=== PATIENT | female | born 1955 | race Caucasian/White ===

== ENCOUNTER → 2017-09-19 | Outpatient (CLI) | payer OTHER ==
[~2017-09-19] MED LIST: FURO40TA6 PO; LEVO112T2 PO; LEVO25TA2 PO; LORA10TA3 PO; MACI10TA PO; MESA1.2T PO; POTA10TA11 PO; POTA20TA89 PO; PROP10TA PO; RABE20TA18 PO; RABE20TA26 PO; SPIR100T2 PO; SPIR25TA3 PO; TRAM100T13 PO; TRAM50TA2 PO; TRAZ100T15 PO; TRAZ50TA18 PO; WARF5TAB PO; WARF5TAB7 PO; [UNRECOGNIZED DRUG - OTHER] PO
== END | disposition home or self-care (01) ==
LOC: CFH 07:50
PROVIDERS: ATTEND Internal Medicine Gastroenterology
DX: Z13.820 Encounter for screening for osteoporosis (principal); E89.40 Asymptomatic postprocedural ovarian failure; M81.0 Age-related osteoporosis without current pathological fracture; R10.9 Unspecified abdominal pain; K74.69 Other cirrhosis of liver; K80.20 Calculus of gallbladder without cholecystitis without obstruction; R18.8 Other ascites; B18.2 Chronic viral hepatitis C; K50.818 Crohn's disease of both small and large intestine with other complication; D69.6 Thrombocytopenia, unspecified; I27.20 Pulmonary hypertension, unspecified; D50.0 Iron deficiency anemia secondary to blood loss (chronic); I85.00 Esophageal varices without bleeding; I86.4 Gastric varices; E03.9 Hypothyroidism, unspecified; Z86.010 Personal history of colon polyps
CPT/HCPCS: 77080

== ENCOUNTER → 2017-09-26 | Outpatient (CLI) | payer OTHER ==
[~2017-09-26] MED LIST changes: +LEVO125T PO; +furosemide PO
[2017-09-26 15:02] LABS: ALANINE AMINOTRANSFERASE 21 U/L (12-78); ALBUMIN 3.3 g/dL (3.4-5.0); ANION GAP 8 mmol/L (5-15); CALCIUM 8.4 mg/dL (8.5-10.1); CHLORIDE 108 mmol/L (98-107)
[2017-09-26 15:05] LABS: ALKALINE PHOSPHATASE 148 U/L (45-117); BILIRUBIN,TOTAL 1.5 mg/dL (0.2-1.0); CREATININE 0.79 mg/dL (0.55-1.02); TOTAL PROTEIN 6.4 g/dL (6.4-8.2)
== END | disposition home or self-care (01) ==
LOC: STAR 13:41
PROVIDERS: ATTEND Thoracic Surgery (Cardiothoracic Vascular Surgery)
DX: Z01.818 Encounter for other preprocedural examination (principal); R94.31 Abnormal electrocardiogram [ECG] [EKG]
CPT/HCPCS: 36415; 80053; 93005

== ENCOUNTER 2017-10-02 10:08 | Observation (INO) | payer OTHER ==
[~2017-10-02] VITALS: Ht 162.6 cm; Wt 84.0 kg
[~2017-10-02 10:08] MED LIST changes: +BUPIVACAINE/PF 0.5% ONE
[2017-10-02] MEDS ORDERED: LACTATED RINGERS 1,000 ML IV SCH (10:38)
[2017-10-02 10:48] VITALS: BP 117/69
[2017-10-02] MEDS ORDERED: THROMBIN 5,000 UNIT VIAL TP ONE ×2 (15:16→15:54)
[2017-10-02] MEDS ORDERED: GLYCOPYRROLATE 0.2MG/1ML, 5ML ONE (15:23)
[2017-10-02] MEDS ORDERED: SUCCINYLCHOLINE 20 MG/ML, 10ML ONE (15:23)
[2017-10-02] MEDS ORDERED: CEFAZOLIN 1,000 MG ONE (15:23)
[2017-10-02] MEDS ORDERED: DEXAMETHASONE 4 MG/ML, 1ML ONE (15:23)
[2017-10-02] MEDS ORDERED: ROCURONIUM 10 MG/ML,10ML ONE (15:23)
[2017-10-02] MEDS ORDERED: NEOSTIGMINE 1 MG/ML, 10ML ONE (15:23)
[2017-10-02] MEDS ORDERED: PROPOFOL 10 MG/ML, 20ML ONE (15:23)
[2017-10-02] MEDS ORDERED: ONDANSETRON 2MG/ML, 2ML ONE (15:23)
[2017-10-02] MEDS ORDERED: FENTANYL PF 100 MCG/2ML ONE ×2 (15:24→16:13)
[2017-10-02] MEDS ORDERED: SUGAMMADEX 200 MG/2 ML IVPush ONE (15:28)
[2017-10-02] MEDS ORDERED: BUPIVACAINE/PF-EPI 0.5% 1:200K IM ONE (15:46)
[2017-10-02] MEDS ORDERED: OXYcodone 5 MG/5 ML ORAL.SOL UDC ONE (16:13)
[2017-10-02] MEDS: FENTANYL PF 100 MCG/2ML IV PRN ×2 (16:15→16:21)
[2017-10-02] MEDS ORDERED: ONDANSETRON 2MG/ML, 2ML IVPush PRN (16:30)
[2017-10-02] MEDS ORDERED: LORazepam 0.5MG TABLET PO PRN (16:30)
[2017-10-02] MEDS ORDERED: PROMETHAZINE 25 MG/ML, 1ML IM PRN (16:30)
[2017-10-02] MEDS ORDERED: OXYcodone 5 MG/5 ML ORAL.SOL UDC PO PRN (16:30)
[2017-10-02] MEDS ORDERED: DIPHENHYDRAMINE 25 MG CAPSULE PO PRN (16:30)
[2017-10-02] MEDS ORDERED: LORazepam 2 MG/ML, 1ML IV PRN (16:30)
[2017-10-02] MEDS ORDERED: FAMOTIDINE 20 MG TABLET PO SCH (16:30)
[2017-10-02] MEDS ORDERED: PROMETHAZINE 12.5 MG SUPP PR PRN (16:30)
[2017-10-02] MEDS ORDERED: FAMOTIDINE 20 MG/2 ML IV SCH (16:30)
[2017-10-02] MEDS ORDERED: hydrALAzine 20 MG/ML, 1ML IV PRN (16:30)
[2017-10-02] MEDS ORDERED: MEPERIDINE/PF 25MG/0.5ML IVPush PRN (16:30)
[2017-10-02] MEDS ORDERED: HYDROcodone/APAP 7.5-325MG/15ML UDC PO PRN (16:30)
[2017-10-02] MEDS ORDERED: ENALAPRILAT 1.25 MG/ML, 2ML IV PRN (16:30)
[2017-10-02] MEDS ORDERED: KETOROLAC 30 MG/1 ML IV PRN (16:30)
[2017-10-02] MEDS ORDERED: DIPHENHYDRAMINE 50 MG/ML, 1ML IV PRN (16:30)
[2017-10-02] MEDS ORDERED: ACETAMINOPHEN 325 MG TABLET PO PRN (16:30)
[2017-10-02] MEDS ORDERED: morphine SULFATE 10 MG/ML, 1ML IV PRN (16:30)
[2017-10-02] MEDS ORDERED: HYDROmorphone 2 MG/ML, 1ML ONE (16:31)
[2017-10-02] MEDS: HYDROmorphone 1 MG/ML, 1ML IV PRN ×4 (16:32→17:19)
[2017-10-02] MEDS: OXYcodone 5 MG/5 ML ORAL.SOL UDC PO PRN ×2 (19:32→23:41)
[2017-10-02 20:13] VITALS: BP 136/75
[2017-10-02] MEDS ORDERED: TRAZODONE 150MG TABLET PO SCH (21:00)
[2017-10-02 23:59] VITALS: BP 125/74
[2017-10-03] MEDS: LACTATED RINGERS 1,000 ML IV SCH ×2 (00:02→08:02)
[2017-10-03] MEDS ORDERED: OXYC20TA2 PO (01:04)
[2017-10-03 04:11] VITALS: BP 127/71
[2017-10-03] MEDS ORDERED: LEVOTHYROXINE 125 MCG TABLET PO SCH (06:00)
[2017-10-03 06:48] VITALS: BP 144/78
[2017-10-03] MEDS ORDERED: MACITENTAN 10 MG HOMEMEDPO SCH (09:00)
[2017-10-03] MEDS ORDERED: MESALAMINE 1.2 GM TABLET.DR PO SCH (09:00)
[2017-10-03] MEDS: OXYcodone 5 MG/5 ML ORAL.SOL UDC PO PRN ×2 (10:22→14:13)
== END 2017-10-03 14:40 | disposition home or self-care (01) ==
LOC: OUT 10:08 → ORIP 16:02 → 4NOR 18:02 → DCLOUNGE 10-03 14:27
PROVIDERS: ADMIT Thoracic Surgery (Cardiothoracic Vascular Surgery); ATTEND Thoracic Surgery (Cardiothoracic Vascular Surgery)
DX: K80.10 Calculus of gallbladder with chronic cholecystitis without obstruction (principal); I27.20 Pulmonary hypertension, unspecified; K74.60 Unspecified cirrhosis of liver; D64.9 Anemia, unspecified
CPT/HCPCS: 47562; 88304; 96374; G0378; J0330; J0690; J1100; J1170; J2405; J2704; J2710; J3010; J3490; J7120; S0028

== ENCOUNTER → 2018-03-06 | Outpatient (CLI) | payer MEDICARE ==
[~2018-03-06] MED LIST changes: -BUPIVACAINE/PF 0.5% ONE; +OXYC20TA2 PO; +WARF-36 PO; -WARF5TAB7 PO
== END | disposition home or self-care (01) ==
LOC: CFH 07:24
PROVIDERS: ATTEND Internal Medicine Cardiovascular Disease
DX: I07.1 Rheumatic tricuspid insufficiency (principal); I27.20 Pulmonary hypertension, unspecified; I10 Essential (primary) hypertension
CPT/HCPCS: 93306

== ENCOUNTER 2019-03-07 11:23 | Inpatient (IN) | payer MEDICARE ==
[~2019-03-07] VITALS: Ht 162.6 cm; Wt 70.8 kg
[~2019-03-07 11:23] MED LIST changes: +LORA-247 PO; -LORA10TA3 PO; -PROP10TA PO; +PROP10TA16 PO; -SPIR100T2 PO; +SPIR100T4 PO; -SPIR25TA3 PO; +SPIR25TA5 PO; +TRAZ-137 PO; -TRAZ100T15 PO; -TRAZ50TA18 PO; +TRAZ50TA66 PO
--- NOTE | 2019-03-07 11:43 | NUR ---
PT WITH C/O N/V/D STARTING SATURDAY LATE AT NIGHT 03/05. PT STATES HER VOMIT AND DIARHHEA IS DARK RED/TARRY. PT DENIES CP, DIZZINESS, MEJIA. STATES SHE FEELS GENERALLY WEAK. PT TO NIBP, CONT PULSE OX. PT TOLD DAUGHTER SHE HAD ABD PAIN, PT DENIES ABD PAIN AT THIS TIME.
[2019-03-07] MEDS ORDERED: SODIUM CHLORIDE FLUSH 10ML SYR IVF ONE (12:30)
[2019-03-07 12:51] LABS: BASOPHILS # (AUTO) 0.04 x10^3/uL (0-0.1); BASOPHILS % (AUTO) 1 % (0-1); EOSINOPHILS # (AUTO) 0.13 x10^3/uL (0-0.4); EOSINOPHILS % (AUTO) 2 % (1-7); LYMPHOCYTES # (AUTO) 0.89 x10^3/uL (1-3.4); LYMPHOCYTES % (AUTO) 12 % (22-44); MD NO; MEAN CORPUSCULAR HEMOGLOBIN 27.7 pg (27.0-34.8); MEAN CORPUSCULAR HGB CONC 32.2 g/dL (32.4-35.8); MEAN CORPUSCULAR VOLUME 85.8 fL (80-100); MEAN PLATELET VOLUME 9.8 fL (7.4-10.4); MONOCYTES # (AUTO) 0.56 x10^3/uL (0.2-0.8); MONOCYTES % (AUTO) 7 % (2-9); NEUTROPHILS # (AUTO) 5.93 x10^3/uL (1.8-6.8); NEUTROPHILS % (AUTO) 79 % (42-75); PLATELET COUNT 138 x10^3/uL (130-400); RED BLOOD COUNT 2.84 x10^6/uL (3.82-5.3); RED CELL DISTRIBUTION WIDTH 19.1 % (9.6-15.2)
[2019-03-07 13:03] LABS: ALBUMIN 2.6 g/dL (3.4-5.0); ANION GAP 8 mmol/L (5-15); CALCIUM 8.4 mg/dL (8.5-10.1); CHLORIDE 118 mmol/L (98-107); INTERNATIONAL NORMALIZED RATIO 1.41 (0.93-1.1)
--- NOTE | 2019-03-07 13:03 | NUR ---
PATIETN WITH MD FOR PLAN OF CARE. DISCUSSED IWTH MD PATIENT BP AND 1000 ML BOLUS STARTED
[2019-03-07 13:07] LABS: ALANINE AMINOTRANSFERASE 26 U/L (12-78); ALKALINE PHOSPHATASE 80 U/L (45-117); BILIRUBIN,TOTAL 1.2 mg/dL (0.2-1.0); CREATININE 0.65 mg/dL (0.55-1.02); TOTAL PROTEIN 4.7 g/dL (6.4-8.2)
[2019-03-07 13:14] LABS: PROTHROMBIN TIME 14.6 Seconds (9.6-11.5)
[2019-03-07 13:29] LABS: CLOSTRIDIUM DIFFICILE ANTIGEN POSITIVE; CLOSTRIDIUM DIFFICILE TOXIN POSITIVE (Negative)
[2019-03-07] MEDS ORDERED: PANTOPRAZOLE 80 MG in SODIUM CHLORIDE 0.9% 50 ML IVPB ONE (13:30)
[2019-03-07] MEDS ORDERED: SODIUM CHLORIDE 0.9% 1,000ML IVBOLUS ONE (13:30)
[2019-03-07] MEDS: PANTOPRAZOLE 80 MG in SODIUM CHLORIDE 0.9% 100 ML IV SCH ×3 (13:59→23:25)
--- NOTE | 2019-03-07 14:05 | NUR ---
LAB CALLED WITH POSITIVE CDIFF RESULTS, PT PLACED IN ISO, FAMILY MEMBERS EDUCATED ON ISOLATION PRECAUTIONS. PT MEDICATED PER MAR
--- NOTE | 2019-03-07 15:04 | NUR ---
PT RESTING ON JAMES ALONZO IN TO UPDATE PT ON POC. PROTONIX GTT INFUSING, PT TO RECIEVE PRBC, CONSENT SIGNED.
--- NOTE | 2019-03-07 15:10 | NUR ---
REPORT CALLED TO RECIEVING MARLI HINSON.
[2019-03-07] MEDS ORDERED: OXYcodone IR 5MG TABLET PO PRN (16:00)
[2019-03-07] MEDS ORDERED: ONDANSETRON 2MG/ML, 2ML IVPush PRN (16:00)
[2019-03-07] MEDS: SERTRALINE 50MG TABLET PO SCH (17:00)
[2019-03-07 17:04] VITALS: BP 100/57
[2019-03-07 17:29] VITALS: BP 106/60
[2019-03-07] MEDS ORDERED: ARIP10TA33 PO (19:10)
[2019-03-07] MEDS ORDERED: SERT50TA28 PO (19:10)
[2019-03-07] MEDS ORDERED: TRAM-47 PO (19:10)
[2019-03-07] MEDS ORDERED: MIRT7.5T8 PO (19:10)
[2019-03-07 20:08] VITALS: BP 107/65
[2019-03-07] MEDS ORDERED: CEFTRIAXONE 500 MG in DEXTROSE 5% 50 ML IV SCH (20:30)
[2019-03-07 20:54] VITALS: BP 119/66
[2019-03-07] MEDS ORDERED: TRAZODONE 50MG TABLET PO SCH (21:00)
[2019-03-07] MEDS: TRAZODONE 50MG TABLET PO SCH (21:11)
[2019-03-07] MEDS: MIRTAZAPINE 15 MG TABLET PO SCH (21:13)
[2019-03-07] MEDS: VANCOMYCIN 50 MG/ML ORAL SUSP PO SCH (21:13)
[2019-03-07] MEDS: ARIPIPRAZOLE 10 MG TABLET PO SCH (21:13)
[2019-03-07 21:15] VITALS: BP 129/68
[2019-03-07] MEDS ORDERED: CEFTRIAXONE PMX 1GM/50ML 50 ML IV SCH (21:30)
[2019-03-07 21:33] LABS: CULTURE INDICATED? NO; MICROSCOPIC NOT IND
[2019-03-07 22:37] VITALS: BP 105/66
[2019-03-08] VITALS (12 sets, daily range): BP systolic 91–138; BP diastolic 52–78
[2019-03-08] MEDS: POTASSIUM CHLORIDE 20 MEQ in LACTATED RINGERS 1,000 ML IV SCH ×2 (00:05→12:02)
[2019-03-08] MEDS: OCTREOTIDE 500 MCG in SODIUM CHLORIDE 0.9% 249 ML IV SCH ×3 (00:14→22:15)
[2019-03-08] MEDS: CEFTRIAXONE PMX 1GM/50ML 50 ML IV SCH ×2 (00:19→23:38)
[2019-03-08] MEDS: VANCOMYCIN 50 MG/ML ORAL SUSP PO SCH ×4 (05:55→20:33)
[2019-03-08] MEDS: LEVOTHYROXINE 112 MCG TABLET PO SCH (05:56)
[2019-03-08] MEDS ORDERED: LEVOTHYROXINE 125 MCG TABLET PO SCH (06:00)
[2019-03-08] MEDS ORDERED: HYDROmorphone 2 MG/ML, 1ML IVPush PRN (07:30)
[2019-03-08] MEDS ORDERED: PROMETHAZINE 25 MG/ML, 1ML IV PRN (07:30)
[2019-03-08] MEDS ORDERED: LABETALOL 5MG/ML, 20ML IV PRN (07:30)
[2019-03-08] MEDS ORDERED: hydrALAzine 20 MG/ML, 1ML IV PRN (07:30)
[2019-03-08] MEDS ORDERED: ONDANSETRON 2MG/ML, 2ML IV PRN (07:30)
[2019-03-08] MEDS ORDERED: FENTANYL PF 100 MCG/2ML IV PRN (07:30)
[2019-03-08] MEDS ORDERED: MIDAZOLAM 1 MG/ML, 2ML ONE (08:46)
[2019-03-08] MEDS ORDERED: FENTANYL PF 100 MCG/2ML ONE (08:46)
[2019-03-08] MEDS ORDERED: MESALAMINE 1.2 GM TABLET.DR PO SCH (09:00)
[2019-03-08] MEDS: SERTRALINE 50MG TABLET PO SCH (09:00)
[2019-03-08] MEDS ORDERED: RABEPRAZOLE SODIUM 20 MG PO SCH (09:00)
[2019-03-08] MEDS: TEMPLATE NON-FORMULARY MED. (Macitentan** (Opsumit**) 10 MG) PO SCH (09:00)
[2019-03-08] MEDS ORDERED: TRAMADOL HCL 100 MG PO SCH (09:00)
[2019-03-08] MEDS: MESALAMINE 1.2 GM TABLET.DR PO SCH (09:00)
[2019-03-08] MEDS ORDERED: FUROSEMIDE 20 MG TABLET PO SCH (09:00)
[2019-03-08] MEDS: PANTOPRAZOLE 80 MG in SODIUM CHLORIDE 0.9% 100 ML IV SCH ×2 (12:02→22:17)
[2019-03-08] MEDS: ARIPIPRAZOLE 10 MG TABLET PO SCH (20:33)
[2019-03-08] MEDS: MIRTAZAPINE 15 MG TABLET PO SCH (20:33)
[2019-03-08] MEDS: TRAZODONE 50MG TABLET PO SCH (20:33)
[2019-03-08 21:07] LABS: FIBRINOGEN 158 mg/dL (200-340); PARTIAL THROMBOPLASTIN TIME 27 Seconds (25-31); PROTHROMBIN TIME 14.3 Seconds (9.6-11.5)
[2019-03-09 00:54] VITALS: BP 112/63
[2019-03-09] MEDS: POTASSIUM CHLORIDE 20 MEQ in LACTATED RINGERS 1,000 ML IV SCH ×2 (01:00→11:15)
[2019-03-09] MEDS: LEVOTHYROXINE 112 MCG TABLET PO SCH (06:04)
[2019-03-09] MEDS: VANCOMYCIN 50 MG/ML ORAL SUSP PO SCH ×4 (06:04→20:50)
[2019-03-09 07:32] LABS: BASOPHILS # (AUTO) 0.01 x10^3/uL (0-0.1); BASOPHILS % (AUTO) 0 % (0-1); EOSINOPHILS # (AUTO) 0.14 x10^3/uL (0-0.4); EOSINOPHILS % (AUTO) 5 % (1-7); LYMPHOCYTES # (AUTO) 0.51 x10^3/uL (1-3.4); LYMPHOCYTES % (AUTO) 18 % (22-44); MD SCAN; MEAN CORPUSCULAR HEMOGLOBIN 28.4 pg (27.0-34.8); MEAN CORPUSCULAR HGB CONC 32.7 g/dL (32.4-35.8); MEAN CORPUSCULAR VOLUME 86.8 fL (80-100); MEAN PLATELET VOLUME 9.3 fL (7.4-10.4); MONOCYTES % (AUTO) 11 % (2-9); NEUTROPHILS # (AUTO) 1.89 x10^3/uL (1.8-6.8); NEUTROPHILS % (AUTO) 67 % (42-75); PLATELET COUNT 60 x10^3/uL (130-400); RED BLOOD COUNT 3.08 x10^6/uL (3.82-5.3); RED CELL DISTRIBUTION WIDTH 16.5 % (9.6-15.2)
[2019-03-09 07:49] VITALS: BP 105/58
[2019-03-09] MEDS: SERTRALINE 50MG TABLET PO SCH (08:58)
[2019-03-09] MEDS: MESALAMINE 1.2 GM TABLET.DR PO SCH (08:58)
[2019-03-09] MEDS ORDERED: PROPRANOLOL 60 MG CAP.SA.24H PO SCH (09:00)
[2019-03-09] MEDS: TEMPLATE NON-FORMULARY MED. (Macitentan** (Opsumit**) 10 MG) PO SCH (09:00)
[2019-03-09] MEDS: OCTREOTIDE 500 MCG in SODIUM CHLORIDE 0.9% 249 ML IV SCH (10:32)
[2019-03-09 11:41] LABS: PT 1:1 MIX 11.4 Seconds (9.6-11.5)
[2019-03-09 13:58] VITALS: BP 100/56
[2019-03-09 20:37] VITALS: BP 100/56
[2019-03-09] MEDS: ARIPIPRAZOLE 10 MG TABLET PO SCH (20:49)
[2019-03-09] MEDS: MIRTAZAPINE 15 MG TABLET PO SCH (20:49)
[2019-03-10] VITALS (8 sets, daily range): BP systolic 76–97; BP diastolic 45–61
[2019-03-10] MEDS: VANCOMYCIN 50 MG/ML ORAL SUSP PO SCH ×2 (05:54→10:47)
[2019-03-10] MEDS: LEVOTHYROXINE 112 MCG TABLET PO SCH (05:54)
[2019-03-10] MEDS ORDERED: PANTOPROZOLE 40MG TABLET PO SCH (06:00)
[2019-03-10 07:01] LABS: MEAN CORPUSCULAR HEMOGLOBIN 28.6 pg (27.0-34.8); MEAN CORPUSCULAR HGB CONC 32.6 g/dL (32.4-35.8); MEAN CORPUSCULAR VOLUME 87.9 fL (80-100); MEAN PLATELET VOLUME 9.7 fL (7.4-10.4); PLATELET COUNT 74 x10^3/uL (130-400); RED BLOOD COUNT 3.02 x10^6/uL (3.82-5.3); RED CELL DISTRIBUTION WIDTH 17.3 % (9.6-15.2)
[2019-03-10 07:46] LABS: BASOPHILS # (AUTO) 0.01 x10^3/uL (0-0.1); BASOPHILS % (AUTO) 0 % (0-1); EOSINOPHILS # (AUTO) 0.16 x10^3/uL (0-0.4); EOSINOPHILS % (AUTO) 4 % (1-7); LYMPHOCYTES # (AUTO) 0.66 x10^3/uL (1-3.4); LYMPHOCYTES % (AUTO) 14 % (22-44); MD SCAN; MONOCYTES # (AUTO) 0.42 x10^3/uL (0.2-0.8); MONOCYTES % (AUTO) 9 % (2-9); NEUTROPHILS # (AUTO) 3.36 x10^3/uL (1.8-6.8); NEUTROPHILS % (AUTO) 73 % (42-75)
[2019-03-10] MEDS: MESALAMINE 1.2 GM TABLET.DR PO SCH (08:18)
[2019-03-10] MEDS: SERTRALINE 50MG TABLET PO SCH (08:18)
[2019-03-10] MEDS: TEMPLATE NON-FORMULARY MED. (Macitentan** (Opsumit**) 10 MG) PO SCH (08:18)
[2019-03-10] MEDS: POTASSIUM CHLORIDE 20 MEQ in LACTATED RINGERS 1,000 ML IV SCH (10:47)
[2019-03-10] MEDS ORDERED: VANC1VIA3 PO (12:50)
== END 2019-03-10 13:20 | disposition home or self-care (01) | DRG 432 ==
LOC: ED 11:52 → EDIP 14:39 → 4WST 15:40
PROVIDERS: ADMIT Internal Medicine; ATTEND Internal Medicine
PROC: 30233N1 Transfusion of Nonautologous Red Blood Cells into Peripheral Vein, Percutaneous Approach (ICD-10-PCS; 2019-03-07)
PROC: 06L38CZ Occlusion of Esophageal Vein with Extraluminal Device, Via Natural or Artificial Opening Endoscopic (ICD-10-PCS; 2019-03-08)
PROC: 0DB68ZX Excision of Stomach, Via Natural or Artificial Opening Endoscopic, Diagnostic (ICD-10-PCS; principal; 2019-03-08 09:00)
DX: K74.69 Other cirrhosis of liver (principal); I85.11 Secondary esophageal varices with bleeding; A04.72 Enterocolitis due to Clostridium difficile, not specified as recurrent; D62 Acute posthemorrhagic anemia; K76.6 Portal hypertension; K50.10 Crohn's disease of large intestine without complications; R18.8 Other ascites; I27.20 Pulmonary hypertension, unspecified; B18.2 Chronic viral hepatitis C; E03.9 Hypothyroidism, unspecified; K76.89 Other specified diseases of liver; E86.1 Hypovolemia; F32.9 Major depressive disorder, single episode, unspecified; I10 Essential (primary) hypertension; I86.4 Gastric varices; K64.2 Third degree hemorrhoids; Z90.710 Acquired absence of both cervix and uterus; K31.89 Other diseases of stomach and duodenum; Z90.49 Acquired absence of other specified parts of digestive tract
CPT/HCPCS: 36415; 36430; 80053; 81003; 85014; 85018; 85025; 85384; 85610; 85670; 85730; 86850; 86900; 86923; 87324; 88305; 96374; G0378; J0696; J2250; J2354; J3010; J3370; J3480; C9113; J7030; J7050; J7120; P9016

== ENCOUNTER → 2019-10-09 | Outpatient (CLI) | payer MEDICARE ==
[~2019-10-09] MED LIST changes: +ARIP10TA33 PO; +CARV10CP PO; +COLE1TAB5 PO; +FURO80TA3 PO; +LOPE-114 PO; +MIRT7.5T8 PO; +OMEP10CA5 PO; +POTA20TA6 PO; +POTASSIUM; +SERT50TA28 PO; +TRAM-47 PO; +TRAM100T3 PO; -TRAZ-137 PO; +TRAZ-175 PO; +VANC1VIA3 PO
== END | disposition home or self-care (01) ==
LOC: STAR 13:30
PROVIDERS: ATTEND Internal Medicine Gastroenterology
DX: Z01.818 Encounter for other preprocedural examination (principal)
CPT/HCPCS: 93005

== ENCOUNTER 2019-10-16 06:51 | Day surgery (SDC) | payer MEDICARE ==
[~2019-10-16] VITALS: Ht 162.6 cm; Wt 79.1 kg
[2019-10-16 07:22] VITALS: BP 116/77
[2019-10-16] MEDS ORDERED: LACTATED RINGERS 1,000 ML IV SCH (07:24)
[2019-10-16] MEDS ORDERED: PROPOFOL 50 ML ONE (09:32)
[2019-10-16] MEDS ORDERED: OXYcodone 5 MG/5 ML ORAL.SOL UDC PO PRN (10:00)
[2019-10-16] MEDS ORDERED: LABETALOL 5MG/ML, 20ML IV PRN (10:00)
[2019-10-16] MEDS ORDERED: PROMETHAZINE 25 MG/ML, 1ML IV PRN (10:00)
[2019-10-16] MEDS ORDERED: FENTANYL PF 100 MCG/2ML IV PRN (10:00)
[2019-10-16] MEDS ORDERED: MEPERIDINE/PF 25MG/ML,1ML IVPush PRN (10:00)
[2019-10-16] MEDS ORDERED: EPHEDRINE 50 MG/ML, 1ML IVPush PRN (10:00)
[2019-10-16] MEDS ORDERED: ONDANSETRON 2MG/ML, 2ML IV PRN (10:00)
[2019-10-16] MEDS ORDERED: HYDROmorphone 2 MG/ML, 1ML IVPush PRN (10:00)
[2019-10-16] MEDS ORDERED: hydrALAzine 20 MG/ML, 1ML IV PRN (10:00)
== END 2019-10-16 11:10 | disposition home or self-care (01) ==
LOC: OR 06:51
PROVIDERS: ATTEND Internal Medicine Gastroenterology
DX: K74.69 Other cirrhosis of liver (principal); I85.10 Secondary esophageal varices without bleeding; K44.9 Diaphragmatic hernia without obstruction or gangrene; K76.6 Portal hypertension; K31.89 Other diseases of stomach and duodenum; K21.9 Gastro-esophageal reflux disease without esophagitis; B18.2 Chronic viral hepatitis C; K50.818 Crohn's disease of both small and large intestine with other complication; R18.8 Other ascites; I10 Essential (primary) hypertension; E03.9 Hypothyroidism, unspecified; I27.20 Pulmonary hypertension, unspecified; Z79.890 Hormone replacement therapy; Z79.891 Long term (current) use of opiate analgesic; Z79.899 Other long term (current) drug therapy; Z86.010 Personal history of colon polyps; Z90.49 Acquired absence of other specified parts of digestive tract; Z98.890 Other specified postprocedural states
CPT/HCPCS: 43244; J2704; J7120

== ENCOUNTER → 2020-02-17 | Outpatient (CLI) | payer MEDICARE ==
[~2020-02-17] MED LIST changes: +DIPH1TAB PO; +RIFA550T4 PO; -WARF5TAB PO; +WARF5TAB2 PO
[2020-02-17 12:53] LABS: MEAN CORPUSCULAR HEMOGLOBIN 28.5 pg (27.0-34.8); MEAN CORPUSCULAR HGB CONC 32.7 g/dL (32.4-35.8); MEAN CORPUSCULAR VOLUME 87.2 fL (80-100); RED BLOOD COUNT 4.19 x10^6/uL (3.82-5.3); RED CELL DISTRIBUTION WIDTH 17.9 % (9.6-15.2)
[2020-02-17 13:17] LABS: ALANINE AMINOTRANSFERASE 24 U/L (12-78); ALBUMIN 3.1 g/dL (3.4-5.0); ANION GAP 3 mmol/L (5-15); CHLORIDE 116 mmol/L (98-107)
[2020-02-17 13:20] LABS: ALKALINE PHOSPHATASE 190 U/L (45-117); BILIRUBIN,TOTAL 1.4 mg/dL (0.2-1.0); CREATININE 0.75 mg/dL (0.55-1.02); TOTAL PROTEIN 6.2 g/dL (6.4-8.2)
[2020-02-17 13:54] LABS: BASOPHILS # (AUTO) 0.01 x10^3/uL (0-0.1); BASOPHILS % (AUTO) 1 % (0-1); EOSINOPHILS # (AUTO) 0.07 x10^3/uL (0-0.4); EOSINOPHILS % (AUTO) 4 % (1-7); LYMPHOCYTES # (AUTO) 0.38 x10^3/uL (1-3.4); LYMPHOCYTES % (AUTO) 19 % (22-44); MD SCAN; MEAN PLATELET VOLUME 10.5 fL (7.4-10.4); MONOCYTES # (AUTO) 0.19 x10^3/uL (0.2-0.8); MONOCYTES % (AUTO) 10 % (2-9); NEUTROPHILS # (AUTO) 1.36 x10^3/uL (1.8-6.8); NEUTROPHILS % (AUTO) 67 % (42-75); PLATELET COUNT 64 x10^3/uL (130-400)
== END | disposition home or self-care (01) ==
LOC: STAR 11:09
PROVIDERS: ATTEND Internal Medicine Gastroenterology
DX: Z01.818 Encounter for other preprocedural examination (principal); K50.818 Crohn's disease of both small and large intestine with other complication; K74.69 Other cirrhosis of liver; R93.3 Abnormal findings on diagnostic imaging of other parts of digestive tract; R94.31 Abnormal electrocardiogram [ECG] [EKG]
CPT/HCPCS: 36415; 80053; 85025; 93005

== ENCOUNTER 2020-02-25 09:48 | Day surgery (SDC) | payer MEDICARE ==
[~2020-02-25] VITALS: Ht 162.6 cm; Wt 76.0 kg
[2020-02-25] MEDS ORDERED: CHLORHEXIDINE 15 ML UDC MM STA (10:00)
[2020-02-25] MEDS ORDERED: LACTATED RINGERS 1,000 ML IV SCH (10:01)
[2020-02-25 10:14] VITALS: BP 113/74
[2020-02-25] MEDS ORDERED: PROPOFOL 10 MG/ML, 20ML ONE (11:47)
[2020-02-25] MEDS ORDERED: LIDOCAINE-MPF 2% ,5ML ONE (11:47)
[2020-02-25] MEDS ORDERED: MIDAZOLAM 1 MG/ML, 2ML ONE (11:47)
[2020-02-25] MEDS ORDERED: LORazepam 2 MG/ML, 1ML IVPush PRN (12:00)
[2020-02-25] MEDS ORDERED: EPHEDRINE 50 MG/ML, 1ML IM PRN (12:00)
[2020-02-25] MEDS ORDERED: ALBUTEROL/IPRATROPIUM 2.5MG/0.5MG, 3 ML NPPB PRN (12:00)
[2020-02-25] MEDS ORDERED: MEPERIDINE/PF 25MG/0.5ML IVPush PRN (12:00)
[2020-02-25] MEDS ORDERED: HYDROcodone/APAP 7.5-325MG/15ML UDC PO PRN (12:00)
[2020-02-25] MEDS ORDERED: EPHEDRINE 50 MG/ML, 1ML IVPush PRN (12:00)
[2020-02-25] MEDS ORDERED: HALOPERIDOL 5 MG/ML IV PRN (12:00)
[2020-02-25] MEDS ORDERED: ONDANSETRON 2MG/ML, 2ML IVPush PRN (12:00)
[2020-02-25] MEDS ORDERED: MIDAZOLAM 1 MG/ML, 2ML IV PRN (12:00)
[2020-02-25] MEDS ORDERED: HYDROmorphone 1 MG/ML, 1ML INJ IVPush PRN (12:00)
[2020-02-25] MEDS ORDERED: DIAZEPAM 5 MG/ML, 2ML IVPush PRN (12:00)
[2020-02-25] MEDS ORDERED: FENTANYL PF 100 MCG/2ML IV PRN (12:00)
[2020-02-25] MEDS ORDERED: METOCLOPRAMIDE 5 MG/ML, 2ML IVPush PRN (12:00)
[2020-02-25] MEDS ORDERED: hydrALAzine 20 MG/ML, 1ML IV PRN (12:00)
[2020-02-25] MEDS ORDERED: DIPHENHYDRAMINE 50 MG/ML, 1ML IVPush PRN (12:00)
[2020-02-25] MEDS ORDERED: LABETALOL 5MG/ML, 20ML IV PRN (12:00)
[2020-02-25] MEDS ORDERED: OXYcodone 5 MG/5 ML ORAL.SOL UDC PO PRN (12:00)
[2020-02-25] MEDS ORDERED: GLYCOPYRROLATE 0.2MG/1ML, 5ML ONE (12:05)
[2020-02-25] MEDS ORDERED: DEXAMETHASONE 4 MG/ML, 1ML ONE (12:05)
== END 2020-02-25 14:50 | disposition home or self-care (01) ==
LOC: OUT 09:48
PROVIDERS: ATTEND Internal Medicine Gastroenterology
DX: K74.69 Other cirrhosis of liver (principal); Z11.59 Encounter for screening for other viral diseases; I85.10 Secondary esophageal varices without bleeding; K76.6 Portal hypertension; K31.89 Other diseases of stomach and duodenum; K21.9 Gastro-esophageal reflux disease without esophagitis; F31.9 Bipolar disorder, unspecified; I27.20 Pulmonary hypertension, unspecified; E03.9 Hypothyroidism, unspecified; G47.30 Sleep apnea, unspecified; Z79.899 Other long term (current) drug therapy; Z90.49 Acquired absence of other specified parts of digestive tract; Z90.710 Acquired absence of both cervix and uterus; Z98.890 Other specified postprocedural states
CPT/HCPCS: 36415; 43235; 87635; J1100; J2250; J2704; J7120

== ENCOUNTER → 2021-01-06 | Outpatient (CLI) | payer MEDICARE ==
[~2021-01-06] MED LIST changes: +PANT20TA4 PO; -RABE20TA26 PO; +RABE20TA29 PO; +SUCR1TAB33 PO; -VANC1VIA3 PO; +VANC1VIA36 PO; +[UNRECOGNIZED DRUG - OTHER]
== END | disposition home or self-care (01) ==
LOC: CFH 11:11
PROVIDERS: ATTEND Internal Medicine Gastroenterology
DX: M81.0 Age-related osteoporosis without current pathological fracture (principal)
CPT/HCPCS: 77080

== ENCOUNTER 2021-02-21 10:52 | Emergency (ER) | payer MEDICARE ==
[~2021-02-21] VITALS: Ht 162.6 cm; Wt 81.3 kg
--- NOTE | 2021-02-21 11:23 | NUR ---
SBA TO BSC. AT BS. CALL LIGHT WITHIN REACH.
[2021-02-21] MEDS ORDERED: HYDROmorphone 1 MG/ML, 1ML INJ IM ONE (11:30)
[2021-02-21] MEDS ORDERED: PLEASE ENTER HEIGHT AND WEIGHT MC SCH (11:30)
[2021-02-21] MEDS ORDERED: HYDROmorphone 1 MG/ML, 1ML INJ ONE (11:39)
--- NOTE | 2021-02-21 11:50 | NUR ---
PT MEDICATED PER ERP ORDER FOR 10/10 L SHOULDER/UPPER ARM PAIN. CALL LIGHT WITHIN REACH.
[2021-02-21 13:49] LABS: CHLORIDE 115 mmol/L (98-107)
[2021-02-21 13:54] LABS: ALANINE AMINOTRANSFERASE 19 U/L (12-78); ALBUMIN 2.9 g/dL (3.4-5.0); ALKALINE PHOSPHATASE 143 U/L (45-117); ANION GAP 3 mmol/L (5-15); BILIRUBIN,TOTAL 1.8 mg/dL (0.2-1.0); CALCIUM 8.8 mg/dL (8.5-10.1); CREATININE 0.69 mg/dL (0.55-1.02); TOTAL PROTEIN 5.4 g/dL (6.4-8.2)
[2021-02-21 14:01] VITALS: BP 121/71
== END 2021-02-21 14:04 | disposition home or self-care (01) ==
LOC: ED 12:48
DX: S42.212A Unspecified displaced fracture of surgical neck of left humerus, initial encounter for closed fracture (principal); R94.31 Abnormal electrocardiogram [ECG] [EKG]; I10 Essential (primary) hypertension; E03.9 Hypothyroidism, unspecified; Z79.899 Other long term (current) drug therapy; Z90.89 Acquired absence of other organs; Z90.49 Acquired absence of other specified parts of digestive tract; Z90.710 Acquired absence of both cervix and uterus; W18.30XA Fall on same level, unspecified, initial encounter; Y93.89 Activity, other specified; Y92.009 Unspecified place in unspecified non-institutional (private) residence as the place of occurrence of the external cause; Y99.8 Other external cause status
CPT/HCPCS: 36415; 73030; 73060; 80053; 82306; 93005; 96372; 99285; J1170

== ENCOUNTER 2021-04-27 14:08 | Inpatient (IN) | payer MEDICARE ==
[~2021-04-27] VITALS: Ht 162.6 cm; Wt 71.9 kg
[~2021-04-27 14:08] MED LIST changes: +POTA-143 PO; -POTA20TA6 PO
--- NOTE | 2021-04-27 14:20 | NUR ---
FINISHER MAP AND CHART: CAMILLE, TUBER MACHINE OPERATOR NOTIFIED OF PT.
[2021-04-27 14:57] LABS: MEAN CORPUSCULAR HEMOGLOBIN 25.5 pg (27.0-34.8); MEAN CORPUSCULAR HGB CONC 31.6 g/dL (32.4-35.8); MEAN PLATELET VOLUME 8.7 fL (7.4-10.4); PLATELET COUNT 79 x10^3/uL (130-400); RED BLOOD COUNT 4.39 x10^6/uL (3.82-5.3); RED CELL DISTRIBUTION WIDTH 26.4 % (9.6-15.2)
[2021-04-27 15:07] LABS: ALBUMIN 2.9 g/dL (3.4-5.0); ANION GAP 7 mmol/L (5-15); CALCIUM 9.5 mg/dL (8.5-10.1); CHLORIDE 103 mmol/L (98-107); CREATININE 0.92 mg/dL (0.55-1.02)
[2021-04-27 15:23] LABS: ALANINE AMINOTRANSFERASE 28 U/L (12-78); ALKALINE PHOSPHATASE 133 U/L (45-117); BILIRUBIN,TOTAL 1.8 mg/dL (0.2-1.0); TOTAL PROTEIN 6.1 g/dL (6.4-8.2); TROPONIN I < 0.015 ng/mL (0.000-0.045)
[2021-04-27 15:43] LABS: <PLATELET ESTIMATE> DECREASED; <PLT MORPHOLOGY> NORMAL PLT MORPH; EOS#(MANUAL) 0.07 x10^3/uL (0.0-0.4); EOS% (MANUAL) 2 % (1-7); HYPOCHROMIA 1+; LYMPH#(MANUAL) 0.37 x10^3/uL (1-3.4); LYMPHS% (MANUAL) 11 % (22-44); MONOS#(MANUAL) 0.37 x10^3/uL (0.3-2.7); MONOS% (MANUAL) 11 % (2-9); SEG#(MANUAL) 2.58 x10^3/uL (1.8-6.8); SEGS% (MANUAL) 76 % (42-75)
[2021-04-27 15:44] LABS: ANISOCYTOSIS 1+; MICROCYTOSIS 1+; OVALOCYTES 1+; TEAR DROPS 1+
[2021-04-27] MEDS ORDERED: LACTULOSE 20 GM/30 ML UDC PO ONE (15:53)
[2021-04-27] MEDS ORDERED: NEOMYCIN SULFATE 500 MG TABLET PO ONE (15:53)
[2021-04-27] MEDS ORDERED: POTASSIUM CHLORIDE 20 MEQ TAB.ER.PRT PO ONE (16:00)
[2021-04-27] MEDS ORDERED: OMNIPAQUE 350 MG/ML, 100ML BOTTLE ONE (16:29)
[2021-04-27 16:57] LABS: INTERNATIONAL NORMALIZED RATIO 1.38 (0.93-1.1); PROTHROMBIN TIME 14.5 Seconds (9.6-11.5)
[2021-04-27] MEDS ORDERED: ONDANSETRON 2MG/ML, 2ML IVPush PRN (18:30)
[2021-04-27] MEDS ORDERED: ACETAMINOPHEN 325 MG TABLET PO PRN (18:30)
[2021-04-27] MEDS ORDERED: LABETALOL 5MG/ML, 20ML IVPush PRN (18:30)
--- NOTE | 2021-04-27 18:51 | NUR ---
REPORT FROM ALBERTO RN, PT RESTING ON KIRTIREMI DENIES NEEDS AT THIS TIME
--- NOTE | 2021-04-27 20:08 | NUR ---
REPORT TO SCOTT ALEJANDRA READY FOR TRANSFER
[2021-04-27 22:23] VITALS: BP 121/69
[2021-04-27 22:53] LABS: OCCULT BLOOD POSITIVE (NEGATIVE)
[2021-04-27] MEDS: LACTULOSE 10 GM/15 ML UDC PO SCH (23:31)
[2021-04-27] MEDS: PANTOPRAZOLE 40 MG IV IVPush SCH (23:31)
[2021-04-27] MEDS: MELATONIN 5 MG TABLET PO PRN (23:31)
[2021-04-28 00:52] VITALS: BP 115/73
[2021-04-28 03:09] LABS: MICROSCOPIC AUTO
[2021-04-28 05:36] LABS: BASOPHILS % (AUTO) 1 % (0-1); EOSINOPHILS % (AUTO) 4 % (1-7); LYMPHOCYTES % (AUTO) 22 % (22-44); MEAN CORPUSCULAR HEMOGLOBIN 25.5 pg (27.0-34.8); MEAN CORPUSCULAR HGB CONC 31.5 g/dL (32.4-35.8); MEAN PLATELET VOLUME 8.5 fL (7.4-10.4); MONOCYTES % (AUTO) 15 % (2-9); NEUTROPHILS % (AUTO) 57 % (42-75); PLATELET COUNT 63 x10^3/uL (130-400); RED BLOOD COUNT 3.79 x10^6/uL (3.82-5.3); RED CELL DISTRIBUTION WIDTH 25.8 % (9.6-15.2)
[2021-04-28 05:49] LABS: CHLORIDE 109 mmol/L (98-107)
[2021-04-28 06:01] LABS: ALANINE AMINOTRANSFERASE 20 U/L (12-78); ALBUMIN 2.4 g/dL (3.4-5.0); ALKALINE PHOSPHATASE 104 U/L (45-117); ANION GAP 7 mmol/L (5-15); BILIRUBIN,TOTAL 1.6 mg/dL (0.2-1.0); CALCIUM 9.1 mg/dL (8.5-10.1); CREATININE 0.66 mg/dL (0.55-1.02)
[2021-04-28 07:07] LABS: <PLATELET ESTIMATE> DECREASED; <PLT MORPHOLOGY> NORMAL PLT MORPH; ANISOCYTOSIS 1+; HYPOCHROMIA 1+; MICROCYTOSIS 1+; OVALOCYTES 1+; TEAR DROPS 1+
[2021-04-28 07:33] VITALS: BP 110/70
[2021-04-28] MEDS ORDERED: POTASSIUM CHLORIDE 20 MEQ TAB.ER.PRT PO ONE (09:00)
[2021-04-28] MEDS: LACTULOSE 10 GM/15 ML UDC PO SCH ×3 (09:22→21:31)
[2021-04-28] MEDS: PANTOPRAZOLE 40 MG IV IVPush SCH ×2 (09:24→21:31)
[2021-04-28 14:05] VITALS: BP 112/73
[2021-04-28 14:14] LABS: OCCULT BLOOD POSITIVE (NEGATIVE)
[2021-04-28] MEDS ORDERED: CHOL200052 PO (17:12)
[2021-04-28] MEDS ORDERED: MIRTAZAPINE 15 MG TABLET PO SCH (21:00)
[2021-04-28] MEDS: SUCRALFATE 1 GM TABLET PO SCH (21:31)
[2021-04-28 21:52] VITALS: BP 125/77
[2021-04-29] MEDS: MELATONIN 5 MG TABLET PO PRN (00:30)
[2021-04-29 01:18] VITALS: BP 103/64
[2021-04-29 03:51] LABS: OCCULT BLOOD POSITIVE (NEGATIVE)
[2021-04-29] MEDS ORDERED: LEVOTHYROXINE 125 MCG TABLET PO SCH (06:00)
[2021-04-29 06:19] LABS: BASOPHILS % (AUTO) 1 % (0-1); EOSINOPHILS % (AUTO) 4 % (1-7); LYMPHOCYTES % (AUTO) 17 % (22-44); MEAN CORPUSCULAR HEMOGLOBIN 25.7 pg (27.0-34.8); MEAN CORPUSCULAR HGB CONC 31.6 g/dL (32.4-35.8); MEAN PLATELET VOLUME 8.7 fL (7.4-10.4); MONOCYTES % (AUTO) 12 % (2-9); NEUTROPHILS % (AUTO) 66 % (42-75); PLATELET COUNT 57 x10^3/uL (130-400); RED BLOOD COUNT 3.58 x10^6/uL (3.82-5.3); RED CELL DISTRIBUTION WIDTH 25.1 % (9.6-15.2)
[2021-04-29 06:27] LABS: CHLORIDE 111 mmol/L (98-107)
[2021-04-29 06:41] LABS: % IRON SATURATION 11 % (20-55); ALANINE AMINOTRANSFERASE 20 U/L (12-78); ALBUMIN 2.4 g/dL (3.4-5.0); ALKALINE PHOSPHATASE 109 U/L (45-117); ANION GAP 8 mmol/L (5-15); BILIRUBIN,TOTAL 1.2 mg/dL (0.2-1.0); CALCIUM 9.1 mg/dL (8.5-10.1); CREATININE 0.61 mg/dL (0.55-1.02); IRON LEVEL 31 mcg/dL (50-170); TOTAL IRON BINDING CAPACITY 272 mcg/dL (250-450); TOTAL PROTEIN 4.9 g/dL (6.4-8.2)
[2021-04-29] MEDS ORDERED: POTASSIUM CHLORIDE 20 MEQ TAB.ER.PRT PO ONE (07:00)
[2021-04-29 07:58] VITALS: BP 100/64
[2021-04-29] MEDS: SUCRALFATE 1 GM TABLET PO SCH ×3 (08:19→16:25)
[2021-04-29] MEDS: PANTOPRAZOLE 40 MG IV IVPush SCH (08:20)
[2021-04-29] MEDS: LACTULOSE 10 GM/15 ML UDC PO SCH ×2 (08:21→16:25)
[2021-04-29] MEDS ORDERED: ARIPIPRAZOLE 10 MG TABLET PO SCH (09:00)
[2021-04-29] MEDS ORDERED: (Macitentan** (Opsumit**) 10 MG) PO SCH (09:00)
[2021-04-29] MEDS ORDERED: FUROSEMIDE 80 MG TABLET PO SCH (09:00)
[2021-04-29] MEDS ORDERED: SPIRONOLACTONE 100 MG TABLET PO SCH (09:00)
[2021-04-29 13:42] VITALS: BP 105/71
[2021-04-29] MEDS ORDERED: LACT10SO24 PO (16:38)
[2021-04-29] MEDS ORDERED: RIFA550T4 PO (16:38)
== END 2021-04-29 18:18 | disposition home or self-care (01) | DRG 442 ==
LOC: ED 17:41 → EDIP 18:26 → 3N 21:00
PROVIDERS: ADMIT Internal Medicine; ATTEND Internal Medicine
DX: K72.00 Acute and subacute hepatic failure without coma (principal); D61.818 Other pancytopenia; K76.6 Portal hypertension; K92.1 Melena; K50.90 Crohn's disease, unspecified, without complications; D50.9 Iron deficiency anemia, unspecified; I10 Essential (primary) hypertension; I27.21 Secondary pulmonary arterial hypertension; K31.89 Other diseases of stomach and duodenum; K72.10 Chronic hepatic failure without coma; R13.10 Dysphagia, unspecified; Z90.710 Acquired absence of both cervix and uterus; E87.6 Hypokalemia; E03.9 Hypothyroidism, unspecified; Z86.19 Personal history of other infectious and parasitic diseases; Z90.49 Acquired absence of other specified parts of digestive tract; K74.60 Unspecified cirrhosis of liver
CPT/HCPCS: 36415; 70450; 70496; 70498; 71045; 80053; 81001; 82140; 82272; 82728; 83540; 83550; 83735; 84100; 84443; 84484; 85014; 85018; 85025; 85610; 87086; 93005; 99285; G0378; Q9967; C9113